=== PATIENT | male | born 1965 | race Hispanic/Latino ===

== ENCOUNTER 2020-09-09 10:38 | Emergency (ER) | payer SELFPAY ==
[2020-09-09] MEDS ORDERED: ASPIRIN 81MG TAB.CHEW ONE (10:43)
[2020-09-09 10:50] LABS: BASOPHILS % (AUTO) 0.1 % (0.0-5.0); EOSINOPHILS % (AUTO) 0.1 % (0.0-8.0); HEMATOCRIT 45.3 % (42-54); LYMPHOCYTES % (AUTO) 8.5 % (21.0-51.0); MEAN CORPUSCULAR HEMOGLOBIN 34.2 pg (27.0-33.0); MEAN CORPUSCULAR HGB CONC 35.1 g/dL (32.0-36.0); MEAN CORPUSCULAR VOLUME 97.4 fL (79-99); MONOCYTES % (AUTO) 5.1 % (3.0-13.0); NEUTROPHILS % (AUTO) 85.9 % (40.0-77.0); PLATELET COUNT (AUTO) 256 K/uL (130-400); RED BLOOD CELL COUNT(AUTO) 4.65 MIL/uL (4.50-6.20); RED CELL DISTRIBUTION WIDTH 12.6 % (11.0-15.5); WHITE BLOOD COUNT (AUTO) 13.6 K/uL (4.8-10.8)
[2020-09-09 11:30] LABS: PROTHROMBIN TIME 10.9 SEC (9.6-11.6)
[2020-09-09 11:31] LABS: PARTIAL THROMBOPLASTIN TIME 25.6 SEC (26.3-35.5)
[2020-09-09 11:33] LABS: CREATININE 1.3 mg/dL (0.5-1.5); POTASSIUM 4.4 mmol/L (3.5-5.1)
[2020-09-09 11:38] LABS: ALBUMIN 4.5 g/dL (3.5-5.0); TOTAL PROTEIN, SERUM 8.8 g/dL (6.0-8.3)
[2020-09-09] MEDS ORDERED: FAMOTIDINE/PF 20 MG/2 ML VIAL IV ONE (12:23)
[2020-09-09 12:55] LABS: AMPHET/METH SCREEN,URINE NEGATIVE (NEGATIVE); BARBITURATE SCREEN, URINE NEGATIVE (NEGATIVE); BENZODIAZEPINES SCREEN,URINE NEGATIVE (NEGATIVE); CANNABINOID SCREEN,URINE NEGATIVE (NEGATIVE); COCAINE SCREEN,URINE POSITIVE (NEGATIVE); OPIATE SCREEN,URINE NEGATIVE (NEGATIVE); PHENCYCLIDINE SCREEN,URINE NEGATIVE (NEGATIVE)
[2020-09-09 13:02] LABS: CREATINE KINASE, TOTAL 111 U/L (21-232); MYOGLOBIN 79 ng/mL (10-92); TROPONIN I < 0.04 ng/mL (0.00-0.06)
[2020-09-09] MEDS ORDERED: MAG HYDROX/AL HYDROX/SIMETH ES 30 ML SUSP UDCUP ONE (14:35)
[2020-09-09] MEDS ORDERED: LIDOCAINE HCL 2% VISCOUS 15 ML UDCUP ONE (14:35)
== END 2020-09-09 15:05 | disposition home or self-care (01) ==
LOC: EDH 10:38
DX: K29.00 Acute gastritis without bleeding (principal); M94.0 Chondrocostal junction syndrome [Tietze]; F14.10 Cocaine abuse, uncomplicated; K21.9 Gastro-esophageal reflux disease without esophagitis; E08.65 Diabetes mellitus due to underlying condition with hyperglycemia; E78.00 Pure hypercholesterolemia, unspecified
CPT/HCPCS: 36415; 71045; 80053; 80305; 82550 ×2; 83874; 84484 ×2; 85025; 85610; 85730; 93005; 96374; 99285; J3490

== ENCOUNTER 2024-04-16 14:35 | Emergency (ER) | payer BC, OTHER ==
[~2024-04-16] VITALS: Ht 165.1 cm; Wt 79.4 kg
[2024-04-16] MEDS: DIPH,PERTUSS(ACELL),TET VAC/PF 0.5 ML VIAL IM ONE (15:17)
[2024-04-16] MEDS: ceFAZolin SODIUM 1 GM VIAL IM STA (15:18)
[2024-04-16] MEDS: LIDOCAINE HCL 1% 20 ML VIAL INJ SCH (15:57)
[2024-04-16 16:39] VITALS: BP 131/78; PULSE 64; RESP 18; TEMP 98.1; O2SAT 98
[2024-04-16] MEDS ORDERED: CEPH500B PO (16:45)
[2024-04-16] MEDS: OCTYL 2-CYANOACRYLATE 1 EACH TP ONE (16:59)
[2024-04-16] MEDS ORDERED: OCTYL 2-CYANOACRYLATE 1 EACH TP SCH (17:00)
== END 2024-04-16 17:11 | disposition home or self-care (01) ==
LOC: EDH 14:35
DX: S81.011A Laceration without foreign body, right knee, initial encounter (principal); I10 Essential (primary) hypertension; E78.00 Pure hypercholesterolemia, unspecified; W29.3XXA Contact with powered garden and outdoor hand tools and machinery, initial encounter; Y93.89 Activity, other specified; Y92.89 Other specified places as the place of occurrence of the external cause; Y99.8 Other external cause status
CPT/HCPCS: 99284; 12032; 90715; 90471; 96372; J0690